=== PATIENT | male | born 1965 | race Caucasian/White ===

== ENCOUNTER 2016-04-17 12:52 | Emergency (ER) | payer OTHER ==
[~2016-04-17] VITALS: Ht 185.4 cm; Wt 109.3 kg
[~2016-04-17 12:52] MED LIST: ABILIFY10 MG PO; ALBUTEROL SULF8.5 GM IH; INDOCIN50 MG PO; LORAZEPAM1 MG PO; MOBIC15 MG PO; NORCO 5/3251 TABLET PO; OMEPRAZOLE20 MG PO; OXAYDO5 MG PO; PROAIR HFA8.5 GM IH
[2016-04-17 13:12] VITALS: BP 116/84
[2016-04-17] MEDS ORDERED: PERCOCET 5/31 TABLET PO (16:17)
== END 2016-04-17 16:56 | disposition home or self-care (01) ==
LOC: EME 12:52
DX: S29.011A Strain of muscle and tendon of front wall of thorax, initial encounter (principal); J44.9 Chronic obstructive pulmonary disease, unspecified; F17.200 Nicotine dependence, unspecified, uncomplicated
CPT/HCPCS: 71100; 99281; 99284

== ENCOUNTER 2016-10-14 16:52 | Observation (INO) | payer OTHER ==
[~2016-10-14] VITALS: Ht 185.4 cm; Wt 98.8 kg
[~2016-10-14 16:52] MED LIST changes: -ABILIFY10 MG PO; +ABILIFY5 MG PO; +PERCOCET 5/31 TABLET PO
[2016-10-14 17:36] LABS: HEMATOCRIT 44.8 % (38.0-50.0); MCH 32.3 PG (29.0-34.0); MCHC 36.2 G/DL (30.0-36.0); MCV 89.2 FL (86-99); MEAN PLAT.VOLUME 12.3 uM^3 (9.0-12.4); PLATELET COUNT 224 K/uL (156-360); RBC DIS.WIDTH-CV 12.7 % (11.8-14.6); RBC DIS.WIDTH-SD 41.6 % (39-53); RED BLOOD COUNT 5.02 M/uL (4.00-5.50); WHITE BLOOD COUNT 12.9 K/uL (4.1-10.2)
[2016-10-14 17:42] LABS: INTER. NORMALIZED RATIO 1.1; PROTHROMBIN TIME 12.2 SEC (10.2-12.9)
[2016-10-14 17:45] LABS: PTT 28.4 SEC (25-37)
[2016-10-14 17:47] LABS: CHLORIDE 99 mEq/L (99-109); POTASSIUM 4.3 mEq/L (3.7-5.4); SODIUM 134 mEq/L (136-147)
[2016-10-14 17:49] LABS: GLUCOSE 167 mg/dL (70-99)
[2016-10-14 17:50] LABS: ANION GAP 13 MEQ/L (2-14)
[2016-10-14 17:52] LABS: GFR ESTIMATE (CALCULATED) > 59 mL/min/
[2016-10-14 17:53] LABS: UREA NITROGEN (BUN) 11 mg/dL (9-23)
[2016-10-14 17:59] LABS: TROP-I INTERPRETATION NEGATIVE; TROPONIN-I < 0.01 ng/mL (0.0-0.30)
[2016-10-14 18:13] LABS: SERUM ETHYL ALCOHOL < 10 mg/dL; TOTAL BILIRUBIN 0.8 mg/dL (0.0-1.0)
[2016-10-14 18:14] LABS: ALKALINE PHOSPHATASE 85 IU/L (3-129)
[2016-10-14 18:17] LABS: LIPASE 21 U/L (1.0-51.0)
[2016-10-14 18:36] LABS: AMPHETAMINE NEGATIVE (500 ng/mL); BARBITURATES NEGATIVE (200 ng/mL); BENZODIAZEPINES NEGATIVE (150 ng/mL); COCAINE NEGATIVE (150 ng/mL); INTERNAL CONTROLS VALID? YES; METHADONE NEGATIVE (200 ng/mL); METHAMPHETAMINE NEGATIVE (500 ng/mL); OPIATES (MORPHINE) NEGATIVE (100 ng/mL); OXYCODONE NEGATIVE (100 ng/mL); PHENCYCLIDINE NEGATIVE (25 ng/mL); PROPOXYPHENE NEGATIVE (300 ng/mL); THC CANNABINOIDS PRESUMPTIVE POSITIVE (50 ng/mL); TRICYCLIC ANTIDEPRESSANTS NEGATIVE (300 ng/mL)
[2016-10-14 18:56] LABS: ADD MEDTOX COMMENT Y
[2016-10-14] MEDS ORDERED: GABAPENTIN300 MG PO (19:48)
[2016-10-14] MEDS ORDERED: REQUIP0.5 MG PO (19:48)
[2016-10-14] MEDS ORDERED: MELATONIN3 MG PO (19:49)
[2016-10-14] MEDS ORDERED: ADVIL200 MG PO (19:49)
[2016-10-14] MEDS ORDERED: AMBIEN10 MG PO (19:50)
[2016-10-14 20:25] VITALS: BP 133/76
== END 2016-10-14 20:32 | disposition left against medical advice (07) ==
LOC: EME 16:52 → EDOF 19:43 → ENRESERV 19:44 → CANRESERV 20:00 → EDOF 20:32
PROVIDERS: Emergency Medicine
DX: I20.9 Angina pectoris, unspecified (principal); F32.9 Major depressive disorder, single episode, unspecified; F17.200 Nicotine dependence, unspecified, uncomplicated; Z88.8 Allergy status to other drugs, medicaments and biological substances
CPT/HCPCS: 71010; 74177; 80048; 80053; 83690; 84484; 84999; 85027; 85610; 85730; 93005; 99281; 99285; G0378; G0480; J2405; J7030

== ENCOUNTER 2017-05-27 08:29 | Emergency (ER) | payer OTHER ==
[~2017-05-27] VITALS: Ht 185.4 cm; Wt 105.5 kg
[~2017-05-27 08:29] MED LIST changes: +ADVIL200 MG PO; +AMBIEN10 MG PO; +GABAPENTIN300 MG PO; +MELATONIN3 MG PO; +REQUIP0.5 MG PO
[2017-05-27] MEDS ORDERED: KEFLEX500 MG PO ×2 (10:07→10:09)
[2017-05-27 10:32] VITALS: BP 106/83
== END 2017-05-27 10:33 | disposition home or self-care (01) ==
LOC: EME 08:29
PROC: 0HQDXZZ Repair Right Lower Arm Skin, External Approach (ICD-10-PCS; principal; 2017-05-27)
DX: S51.811A Laceration without foreign body of right forearm, initial encounter (principal); W45.8XXA Other foreign body or object entering through skin, initial encounter; W22.8XXA Striking against or struck by other objects, initial encounter; F17.200 Nicotine dependence, unspecified, uncomplicated
CPT/HCPCS: 73090; 99281; 99284